=== PATIENT | male | born 1960 | race African-American/Black ===

== ENCOUNTER 2021-11-15 23:47 | Emergency (ER) | payer SELFPAY ==
[2021-11-16] MEDS ORDERED: Acetaminophen 500 MG TAB ONE (02:39)
== END 2021-11-16 02:48 | disposition home or self-care (01) ==
LOC: ERS 23:47
DX: S02.2XXA Fracture of nasal bones, initial encounter for closed fracture (principal); S00.83XA Contusion of other part of head, initial encounter; E11.9 Type 2 diabetes mellitus without complications; F17.210 Nicotine dependence, cigarettes, uncomplicated; Y04.0XXA Assault by unarmed brawl or fight, initial encounter
CPT/HCPCS: 70450